=== PATIENT | female | born 1990 | race Caucasian/White ===

== ENCOUNTER 2017-04-06 15:54 | Emergency (ER) | payer OTHER ==
[~2017-04-06] VITALS: Ht 157.5 cm; Wt 101.2 kg
[2017-04-06] MEDS ORDERED: NAPROSYN500 MG PO (16:14)
[2017-04-06] MEDS ORDERED: PREDNISONE 20 M20 MG PO (16:14)
[2017-04-06 16:33] VITALS: BP 111/70
== END 2017-04-06 17:07 | disposition home or self-care (01) ==
LOC: ER 15:54
DX: J02.9 Acute pharyngitis, unspecified (principal); T16.9XXA Foreign body in ear, unspecified ear, initial encounter; F17.210 Nicotine dependence, cigarettes, uncomplicated; X58.XXXA Exposure to other specified factors, initial encounter; Y93.89 Activity, other specified; Y92.89 Other specified places as the place of occurrence of the external cause; Y99.8 Other external cause status